=== PATIENT | male | born 1945 | race Caucasian/White ===

== ENCOUNTER 2016-11-19 15:41 | Inpatient (IN) | payer MEDICARE ==
[~2016-11-19] VITALS: Ht 185.4 cm; Wt 112.9 kg
[2016-11-19] MEDS ORDERED: DUONEB INH ONE ×2 (17:31)
[2016-11-19] MEDS ORDERED: NEB-ALBUTEROL 2.5 MG/3 ML INH ONE (17:31)
[2016-11-19] MEDS ORDERED: Furosemide 40 MG/4 ML VIAL ONE (19:47)
[2016-11-19] MEDS ORDERED: SALINE FLUSH 10 ML FLUSH PRN (20:30)
[2016-11-19] MEDS ORDERED: ONDANSETRON 4 MG VIAL IV PRN (20:30)
[2016-11-19] MEDS ORDERED: PROMETHAZINE 25 MG TAB PO PRN (21:05)
[2016-11-19] MEDS ORDERED: ALU/MAG/SIM 30 ML UDC PO PRN (21:05)
[2016-11-19] MEDS ORDERED: PROMETHAZINE 25 MG SUPP RECTAL PRN (21:05)
[2016-11-19 22:15] VITALS: BP_SYST 138; RESP 20; TEMP 98.2; Ht 185.4 cm; Wt 112.9 kg
[2016-11-20] VITALS (15 sets, daily range): BP systolic 102–146; RESP 18–22; TEMP 97.3–98.9
[2016-11-20] MEDS: DIGOXIN 0.125 MG TAB PO SCH ×2 (00:27→12:26)
[2016-11-20] MEDS: DILTIAZEM CD 120 MG CAP PO SCH ×2 (00:27→12:25)
[2016-11-20] MEDS: CARVEDILOL 25 MG TAB PO SCH ×3 (00:28→20:30)
[2016-11-20] MEDS: PRAVASTATIN 40 MG TAB PO SCH ×2 (00:28→20:30)
[2016-11-20] MEDS: APIXABAN 5 MG TAB PO SCH ×3 (00:29→20:30)
[2016-11-20] MEDS: METHYLPRED SOD SUCC 40 MG VIAL IV SCH ×2 (00:29→08:19)
[2016-11-20] MEDS: DUONEB INH SCH ×5 (00:30→23:51)
[2016-11-20] MEDS: ZOLPIDEM 5 MG TAB PO PRN ×2 (02:35→22:38)
[2016-11-20] MEDS: SODIUM CHLORIDE 0.9% FLUSH BAG 500 ML IV SCH (06:09)
[2016-11-20] MEDS: NEB-BROVANA 15 MCG/2 ML INH SCH ×2 (07:19→17:33)
[2016-11-20] MEDS: SALINE FLUSH 10 ML FLUSH SCH ×2 (08:19→20:30)
[2016-11-20] MEDS: NICOTINE 21 MG/24 HR TRANSDERM SCH (08:20)
[2016-11-20] MEDS: CEFTRIAXONE 1 GM in SODIUM CHLORIDE 0.9% 50 ML IV SCH (08:20)
[2016-11-20] MEDS: LISINOPRIL 20 MG TAB PO SCH (08:20)
[2016-11-20] MEDS: Furosemide 20 MG TAB PO SCH (08:21)
[2016-11-20] MEDS: MULTIVITS/MINERALS (THERAGRAN M) TAB PO SCH (08:21)
[2016-11-20] MEDS: FOLIC ACID 1 MG TAB PO SCH (08:21)
[2016-11-20] MEDS: THIAMINE 100 MG TAB PO SCH (08:21)
[2016-11-20] MEDS ORDERED: ENOXAPARIN 40 MG/0.4 ML SYR SUBQ SCH (09:00)
[2016-11-20] MEDS ORDERED: MAGNEVIST 20ML IV ONE (09:39)
[2016-11-20] MEDS: NEB-BUDESONIDE 0.5 MG INH SCH ×2 (11:35→17:34)
[2016-11-20] MEDS ORDERED: AZITHROMYCIN 250 MG TAB PO ONE (11:35)
[2016-11-20] MEDS: LORAZEPAM 0.5 MG TAB PO PRN ×2 (14:01→19:24)
[2016-11-20] MEDS ORDERED: MISSING DOSE XX ONE (19:35)
[2016-11-21] VITALS (8 sets, daily range): BP systolic 108–149; RESP 17–20; TEMP 97.3–98.7
[2016-11-21] MEDS: SODIUM CHLORIDE 0.9% FLUSH BAG 500 ML IV SCH (06:20)
[2016-11-21] MEDS: NEB-BUDESONIDE 0.5 MG INH SCH ×2 (07:39→20:24)
[2016-11-21] MEDS: DUONEB INH SCH ×4 (07:39→23:51)
[2016-11-21] MEDS: NEB-BROVANA 15 MCG/2 ML INH SCH ×2 (07:39→20:25)
[2016-11-21] MEDS ORDERED: MISSING DOSE XX ONE ×2 (08:00→11:50)
[2016-11-21] MEDS: SALINE FLUSH 10 ML FLUSH SCH ×2 (08:25→20:33)
[2016-11-21] MEDS: NICOTINE 21 MG/24 HR TRANSDERM SCH (08:25)
[2016-11-21] MEDS: CEFTRIAXONE 1 GM in SODIUM CHLORIDE 0.9% 50 ML IV SCH (08:25)
[2016-11-21] MEDS: LISINOPRIL 20 MG TAB PO SCH (08:26)
[2016-11-21] MEDS: Furosemide 20 MG TAB PO SCH (08:26)
[2016-11-21] MEDS: FOLIC ACID 1 MG TAB PO SCH (08:26)
[2016-11-21] MEDS: MULTIVITS/MINERALS (THERAGRAN M) TAB PO SCH (08:26)
[2016-11-21] MEDS: AZITHROMYCIN 250 MG TAB PO SCH (08:26)
[2016-11-21] MEDS: THIAMINE 100 MG TAB PO SCH (08:26)
[2016-11-21] MEDS: PREDNISONE 20 MG TAB PO SCH (08:26)
[2016-11-21] MEDS: KCL CR 10 MEQ TAB PO SCH (08:26)
[2016-11-21] MEDS: LORAZEPAM 0.5 MG TAB PO PRN ×2 (08:26→15:26)
[2016-11-21] MEDS: APIXABAN 5 MG TAB PO SCH ×2 (08:27→20:33)
[2016-11-21] MEDS: CARVEDILOL 25 MG TAB PO SCH (08:27)
[2016-11-21] MEDS: DIGOXIN 0.125 MG TAB PO SCH (12:08)
[2016-11-21] MEDS: DILTIAZEM CD 120 MG CAP PO SCH (12:08)
[2016-11-21] MEDS ORDERED: LORAZEPAM 0.5 MG TAB PO PRN (12:15)
[2016-11-21] MEDS: BUSPIRONE HCL 15 MG TAB PO SCH ×2 (12:59→20:33)
[2016-11-21] MEDS: PAROXETINE HCL 20 MG TAB PO SCH (12:59)
[2016-11-21] MEDS: NEB-NACL 3% 4 ML NEBU INH SCH ×3 (15:58→23:51)
[2016-11-21] MEDS: PRAVASTATIN 40 MG TAB PO SCH (20:33)
[2016-11-21] MEDS: ZOLPIDEM 5 MG TAB PO PRN (20:38)
[2016-11-22 03:46] VITALS: BP_SYST 136; TEMP 98.3
[2016-11-22] MEDS: SODIUM CHLORIDE 0.9% FLUSH BAG 500 ML IV SCH (06:00)
[2016-11-22 07:14] VITALS: BP_SYST 134; RESP 18; TEMP 97.3
[2016-11-22] MEDS: DUONEB INH SCH ×4 (07:14→22:31)
[2016-11-22] MEDS: NEB-BROVANA 15 MCG/2 ML INH SCH ×2 (07:14→18:31)
[2016-11-22] MEDS: NEB-NACL 3% 4 ML NEBU INH SCH ×4 (07:15→22:31)
[2016-11-22] MEDS: NEB-BUDESONIDE 0.5 MG INH SCH ×2 (07:15→18:31)
[2016-11-22] MEDS: CEFTRIAXONE 1 GM in SODIUM CHLORIDE 0.9% 50 ML IV SCH (08:33)
[2016-11-22] MEDS: SALINE FLUSH 10 ML FLUSH SCH ×2 (08:33→20:34)
[2016-11-22] MEDS: Furosemide 20 MG TAB PO SCH (08:34)
[2016-11-22] MEDS: BUSPIRONE HCL 15 MG TAB PO SCH ×2 (08:34→20:34)
[2016-11-22] MEDS: MULTIVITS/MINERALS (THERAGRAN M) TAB PO SCH (08:34)
[2016-11-22] MEDS: THIAMINE 100 MG TAB PO SCH (08:34)
[2016-11-22] MEDS: AZITHROMYCIN 250 MG TAB PO SCH (08:34)
[2016-11-22] MEDS: LISINOPRIL 20 MG TAB PO SCH ×2 (08:34→12:49)
[2016-11-22] MEDS: APIXABAN 5 MG TAB PO SCH ×2 (08:34→20:34)
[2016-11-22] MEDS: PAROXETINE HCL 20 MG TAB PO SCH (08:34)
[2016-11-22] MEDS: PREDNISONE 20 MG TAB PO SCH (08:34)
[2016-11-22] MEDS: NICOTINE 21 MG/24 HR TRANSDERM SCH (08:35)
[2016-11-22] MEDS ORDERED: CARVEDILOL 25 MG TAB PO SCH (09:00)
[2016-11-22 11:09] VITALS: BP_SYST 101; RESP 20; TEMP 97.4
[2016-11-22] MEDS: LORAZEPAM 0.5 MG TAB PO PRN ×2 (11:27→20:35)
[2016-11-22] MEDS: DILTIAZEM CD 120 MG CAP PO SCH (11:27)
[2016-11-22] MEDS: DIGOXIN 0.125 MG TAB PO SCH (11:27)
[2016-11-22] MEDS: PIPERACIL/TAZO 3.375GM/50ML 50 ML IV SCH ×2 (12:08→15:47)
[2016-11-22] MEDS ORDERED: METOLAZONE 2.5 MG TAB PO ONE (12:45)
[2016-11-22] MEDS: CARVEDILOL 25 MG TAB PO SCH ×2 (12:49→20:34)
[2016-11-22 14:52] VITALS: BP_SYST 150; RESP 20; TEMP 98.6
[2016-11-22 19:50] VITALS: BP_SYST 136; RESP 20; TEMP 97.6
[2016-11-22] MEDS: PRAVASTATIN 40 MG TAB PO SCH (20:34)
[2016-11-22] MEDS: ZOLPIDEM 5 MG TAB PO PRN (20:34)
[2016-11-22] MEDS: AMOXICILLIN/CLAV 875 MG TAB PO SCH (20:34)
[2016-11-22 23:13] VITALS: BP_SYST 120; RESP 20; TEMP 98.7
[2016-11-23] VITALS (8 sets, daily range): BP systolic 116–144; RESP 16–24; TEMP 97.6–98.7
[2016-11-23] MEDS: SODIUM CHLORIDE 0.9% FLUSH BAG 500 ML IV SCH (05:37)
[2016-11-23] MEDS: DUONEB INH SCH ×4 (06:08→22:50)
[2016-11-23] MEDS: NEB-BROVANA 15 MCG/2 ML INH SCH ×2 (06:08→19:10)
[2016-11-23] MEDS: NEB-BUDESONIDE 0.5 MG INH SCH ×2 (06:08→19:10)
[2016-11-23] MEDS: NEB-NACL 3% 4 ML NEBU INH SCH ×4 (06:08→22:50)
[2016-11-23] MEDS: AMOXICILLIN/CLAV 875 MG TAB PO SCH ×2 (08:15→20:47)
[2016-11-23] MEDS: SALINE FLUSH 10 ML FLUSH SCH ×2 (08:15→20:48)
[2016-11-23] MEDS: NICOTINE 21 MG/24 HR TRANSDERM SCH (08:16)
[2016-11-23] MEDS: LISINOPRIL 20 MG TAB PO SCH (08:16)
[2016-11-23] MEDS: AZITHROMYCIN 250 MG TAB PO SCH (08:16)
[2016-11-23] MEDS: THIAMINE 100 MG TAB PO SCH (08:17)
[2016-11-23] MEDS: APIXABAN 5 MG TAB PO SCH ×2 (08:17→20:47)
[2016-11-23] MEDS: MULTIVITS/MINERALS (THERAGRAN M) TAB PO SCH (08:17)
[2016-11-23] MEDS: PREDNISONE 20 MG TAB PO SCH (08:17)
[2016-11-23] MEDS: KCL CR 10 MEQ TAB PO SCH (08:17)
[2016-11-23] MEDS: PAROXETINE HCL 20 MG TAB PO SCH (08:17)
[2016-11-23] MEDS: Furosemide 20 MG TAB PO SCH (08:18)
[2016-11-23] MEDS: CARVEDILOL 25 MG TAB PO SCH ×2 (08:18→20:57)
[2016-11-23] MEDS: BUSPIRONE HCL 15 MG TAB PO SCH ×2 (08:18→20:47)
[2016-11-23] MEDS ORDERED: METOLAZONE 2.5 MG TAB PO ONE (08:35)
[2016-11-23] MEDS: DIGOXIN 0.125 MG TAB PO SCH (11:31)
[2016-11-23] MEDS: DILTIAZEM CD 120 MG CAP PO SCH (11:31)
[2016-11-23] MEDS: METOLAZONE 2.5 MG TAB PO SCH (12:50)
[2016-11-23] MEDS: PRAVASTATIN 40 MG TAB PO SCH (20:47)
[2016-11-23] MEDS: ZOLPIDEM 5 MG TAB PO PRN (20:57)
[2016-11-24] VITALS (7 sets, daily range): BP systolic 110–170; RESP 16–20; TEMP 98–98.5
[2016-11-24] MEDS: LORAZEPAM 0.5 MG TAB PO PRN ×2 (04:05→13:17)
[2016-11-24] MEDS: SODIUM CHLORIDE 0.9% FLUSH BAG 500 ML IV SCH (05:31)
[2016-11-24] MEDS: DUONEB INH SCH ×4 (07:49→22:14)
[2016-11-24] MEDS: NEB-BROVANA 15 MCG/2 ML INH SCH ×2 (07:49→20:07)
[2016-11-24] MEDS: NEB-NACL 3% 4 ML NEBU INH SCH ×3 (07:49→20:07)
[2016-11-24] MEDS: NEB-BUDESONIDE 0.5 MG INH SCH ×2 (07:49→20:07)
[2016-11-24] MEDS: SALINE FLUSH 10 ML FLUSH SCH ×2 (08:37→21:15)
[2016-11-24] MEDS: Furosemide 20 MG TAB PO SCH (08:38)
[2016-11-24] MEDS: NICOTINE 21 MG/24 HR TRANSDERM SCH (08:38)
[2016-11-24] MEDS: AZITHROMYCIN 250 MG TAB PO SCH (08:38)
[2016-11-24] MEDS: METOLAZONE 2.5 MG TAB PO SCH (08:39)
[2016-11-24] MEDS: PREDNISONE 20 MG TAB PO SCH (08:39)
[2016-11-24] MEDS: PAROXETINE HCL 20 MG TAB PO SCH (08:40)
[2016-11-24] MEDS: LISINOPRIL 20 MG TAB PO SCH (08:40)
[2016-11-24] MEDS: AMOXICILLIN/CLAV 875 MG TAB PO SCH ×2 (08:40→21:13)
[2016-11-24] MEDS: CARVEDILOL 25 MG TAB PO SCH ×2 (08:40→21:13)
[2016-11-24] MEDS: APIXABAN 5 MG TAB PO SCH ×2 (08:40→21:13)
[2016-11-24] MEDS: BUSPIRONE HCL 15 MG TAB PO SCH ×2 (08:40→21:13)
[2016-11-24] MEDS: DILTIAZEM CD 120 MG CAP PO SCH (11:57)
[2016-11-24] MEDS: DIGOXIN 0.125 MG TAB PO SCH (11:57)
[2016-11-24] MEDS: PRAVASTATIN 40 MG TAB PO SCH (21:13)
[2016-11-24] MEDS: ZOLPIDEM 5 MG TAB PO PRN (21:13)
[2016-11-25] VITALS (7 sets, daily range): BP systolic 119–170; RESP 18; TEMP 98–98.6
[2016-11-25] MEDS: NEB-NACL 3% 4 ML NEBU INH SCH ×5 (00:30→22:19)
[2016-11-25] MEDS: SODIUM CHLORIDE 0.9% FLUSH BAG 500 ML IV SCH (06:00)
[2016-11-25] MEDS: NEB-BROVANA 15 MCG/2 ML INH SCH ×2 (07:41→20:14)
[2016-11-25] MEDS: DUONEB INH SCH ×4 (07:41→22:19)
[2016-11-25] MEDS: NEB-BUDESONIDE 0.5 MG INH SCH ×2 (07:41→20:14)
[2016-11-25] MEDS: AMOXICILLIN/CLAV 875 MG TAB PO SCH ×2 (08:01→20:05)
[2016-11-25] MEDS: AZITHROMYCIN 250 MG TAB PO SCH (08:01)
[2016-11-25] MEDS: BUSPIRONE HCL 15 MG TAB PO SCH ×2 (08:01→20:05)
[2016-11-25] MEDS: PREDNISONE 20 MG TAB PO SCH (08:01)
[2016-11-25] MEDS: CARVEDILOL 25 MG TAB PO SCH ×2 (08:01→20:05)
[2016-11-25] MEDS: KCL CR 10 MEQ TAB PO SCH (08:01)
[2016-11-25] MEDS: PAROXETINE HCL 20 MG TAB PO SCH (08:01)
[2016-11-25] MEDS: LISINOPRIL 20 MG TAB PO SCH (08:02)
[2016-11-25] MEDS: APIXABAN 5 MG TAB PO SCH ×2 (08:02→20:05)
[2016-11-25] MEDS: METOLAZONE 2.5 MG TAB PO SCH (08:02)
[2016-11-25] MEDS: Furosemide 20 MG TAB PO SCH (08:02)
[2016-11-25] MEDS: NICOTINE 21 MG/24 HR TRANSDERM SCH (08:03)
[2016-11-25] MEDS: SALINE FLUSH 10 ML FLUSH SCH ×2 (08:08→20:05)
[2016-11-25] MEDS: DILTIAZEM CD 120 MG CAP PO SCH (11:34)
[2016-11-25] MEDS: DIGOXIN 0.125 MG TAB PO SCH (11:35)
[2016-11-25] MEDS ORDERED: LISINOPRIL 20 MG TAB PO ONE (12:45)
[2016-11-25] MEDS: LORAZEPAM 0.5 MG TAB PO PRN (13:13)
[2016-11-25] MEDS ORDERED: MISSING DOSE XX ONE (13:30)
[2016-11-25] MEDS: PRAVASTATIN 40 MG TAB PO SCH (20:05)
[2016-11-25] MEDS: ZOLPIDEM 5 MG TAB PO PRN (20:05)
[2016-11-26 04:24] VITALS: BP_SYST 141; RESP 18; TEMP 97.9
[2016-11-26] MEDS: SODIUM CHLORIDE 0.9% FLUSH BAG 500 ML IV SCH (06:00)
[2016-11-26 07:28] VITALS: BP_SYST 148; RESP 18; TEMP 97.9
[2016-11-26] MEDS: NEB-NACL 3% 4 ML NEBU INH SCH ×4 (07:31→22:48)
[2016-11-26] MEDS: DUONEB INH SCH ×4 (07:31→22:48)
[2016-11-26] MEDS: NEB-BROVANA 15 MCG/2 ML INH SCH ×2 (07:31→19:13)
[2016-11-26] MEDS: NEB-BUDESONIDE 0.5 MG INH SCH ×2 (07:31→19:13)
[2016-11-26] MEDS ORDERED: KCL CR 20 MEQ TAB PO ONE (07:45)
[2016-11-26] MEDS: Furosemide 20 MG TAB PO SCH (08:20)
[2016-11-26] MEDS: APIXABAN 5 MG TAB PO SCH ×2 (08:20→20:51)
[2016-11-26] MEDS: AMOXICILLIN/CLAV 875 MG TAB PO SCH ×2 (08:21→20:50)
[2016-11-26] MEDS: METOLAZONE 2.5 MG TAB PO SCH (08:21)
[2016-11-26] MEDS: PAROXETINE HCL 20 MG TAB PO SCH (08:21)
[2016-11-26] MEDS: BUSPIRONE HCL 15 MG TAB PO SCH ×2 (08:21→20:50)
[2016-11-26] MEDS: MAG OXIDE 400 MG TAB PO SCH (08:22)
[2016-11-26] MEDS: SALINE FLUSH 10 ML FLUSH SCH ×2 (08:22→20:51)
[2016-11-26] MEDS: LISINOPRIL 20 MG TAB PO SCH (08:22)
[2016-11-26] MEDS: NICOTINE 21 MG/24 HR TRANSDERM SCH (08:22)
[2016-11-26] MEDS: CARVEDILOL 25 MG TAB PO SCH ×2 (08:32→20:51)
[2016-11-26 11:03] VITALS: BP_SYST 105; RESP 20; TEMP 97.6
[2016-11-26] MEDS: DIGOXIN 0.125 MG TAB PO SCH (11:33)
[2016-11-26] MEDS: DILTIAZEM CD 120 MG CAP PO SCH (11:33)
[2016-11-26] MEDS: LORAZEPAM 0.5 MG TAB PO PRN (12:38)
[2016-11-26 14:51] VITALS: BP_SYST 106; RESP 16; TEMP 98.8
[2016-11-26 20:03] VITALS: BP_SYST 124; RESP 16; TEMP 98.5
[2016-11-26] MEDS: ZOLPIDEM 5 MG TAB PO PRN (20:50)
[2016-11-26] MEDS: PRAVASTATIN 40 MG TAB PO SCH (20:51)
[2016-11-26 23:21] VITALS: BP_SYST 125; RESP 16; TEMP 98.4
[2016-11-27] VITALS (7 sets, daily range): BP systolic 91–143; RESP 16–24; TEMP 97.3–98.5
[2016-11-27] MEDS: SODIUM CHLORIDE 0.9% FLUSH BAG 500 ML IV SCH (06:00)
[2016-11-27] MEDS: DUONEB INH SCH ×4 (07:44→22:32)
[2016-11-27] MEDS: NEB-BROVANA 15 MCG/2 ML INH SCH ×2 (07:44→19:46)
[2016-11-27] MEDS: NEB-BUDESONIDE 0.5 MG INH SCH ×2 (07:44→19:46)
[2016-11-27] MEDS: NEB-NACL 3% 4 ML NEBU INH SCH ×4 (07:45→22:32)
[2016-11-27] MEDS: SALINE FLUSH 10 ML FLUSH SCH ×2 (08:22→20:59)
[2016-11-27] MEDS: KCL CR 10 MEQ TAB PO SCH (08:23)
[2016-11-27] MEDS: NICOTINE 21 MG/24 HR TRANSDERM SCH (08:23)
[2016-11-27] MEDS: CARVEDILOL 25 MG TAB PO SCH ×2 (08:24→20:58)
[2016-11-27] MEDS: APIXABAN 5 MG TAB PO SCH ×2 (08:25→20:58)
[2016-11-27] MEDS: AMOXICILLIN/CLAV 875 MG TAB PO SCH ×2 (08:25→20:58)
[2016-11-27] MEDS: BUSPIRONE HCL 15 MG TAB PO SCH ×2 (08:25→20:58)
[2016-11-27] MEDS: Furosemide 20 MG TAB PO SCH (08:26)
[2016-11-27] MEDS: MAG OXIDE 400 MG TAB PO SCH (08:26)
[2016-11-27] MEDS: LISINOPRIL 20 MG TAB PO SCH (08:26)
[2016-11-27] MEDS: METOLAZONE 2.5 MG TAB PO SCH (08:27)
[2016-11-27] MEDS: PAROXETINE HCL 20 MG TAB PO SCH (08:27)
[2016-11-27] MEDS: LORAZEPAM 0.5 MG TAB PO PRN ×2 (08:35→16:52)
[2016-11-27] MEDS ORDERED: SODIUM CHLORIDE 0.9% 500 ML IV ONE (09:25)
[2016-11-27] MEDS ORDERED: DIGOXIN 0.125 MG TAB PO ONE (10:00)
[2016-11-27] MEDS: DIGOXIN 0.125 MG TAB PO SCH (10:06)
[2016-11-27] MEDS ORDERED: SODIUM CHLORIDE 0.9% 1,000 ML IV ONE (11:55)
[2016-11-27] MEDS ORDERED: OPTIRAY 350 100 ML VIAL HMH IV ONE (13:19)
[2016-11-27] MEDS: DILTIAZEM CD 120 MG CAP PO SCH (13:32)
[2016-11-27] MEDS: PRAVASTATIN 40 MG TAB PO SCH (20:58)
[2016-11-27] MEDS: ZOLPIDEM 5 MG TAB PO PRN (21:02)
[2016-11-28] VITALS (7 sets, daily range): BP systolic 99–151; RESP 16–22; TEMP 97.6–98.8
[2016-11-28] MEDS: DUONEB INH SCH ×4 (07:26→23:00)
[2016-11-28] MEDS: NEB-NACL 3% 4 ML NEBU INH SCH ×4 (07:26→23:35)
[2016-11-28] MEDS: NEB-BROVANA 15 MCG/2 ML INH SCH ×2 (07:26→18:50)
[2016-11-28] MEDS: NEB-BUDESONIDE 0.5 MG INH SCH ×2 (07:26→18:50)
[2016-11-28] MEDS ORDERED: MISSING DOSE XX ONE (10:00)
[2016-11-28] MEDS: AMOXICILLIN/CLAV 875 MG TAB PO SCH ×2 (10:03→21:28)
[2016-11-28] MEDS: APIXABAN 5 MG TAB PO SCH ×2 (10:04→21:26)
[2016-11-28] MEDS: CARVEDILOL 25 MG TAB PO SCH ×2 (10:04→21:29)
[2016-11-28] MEDS: BUSPIRONE HCL 15 MG TAB PO SCH ×2 (10:04→21:28)
[2016-11-28] MEDS: PAROXETINE HCL 20 MG TAB PO SCH (10:04)
[2016-11-28] MEDS: NICOTINE 21 MG/24 HR TRANSDERM SCH (10:05)
[2016-11-28] MEDS: SODIUM CHLORIDE 0.9% FLUSH BAG 500 ML IV SCH (10:05)
[2016-11-28] MEDS: SALINE FLUSH 10 ML FLUSH SCH ×2 (10:06→21:29)
[2016-11-28] MEDS: DIGOXIN 0.125 MG TAB PO SCH (11:05)
[2016-11-28] MEDS: KCL CR 10 MEQ TAB PO SCH (11:06)
[2016-11-28] MEDS ORDERED: DILTIAZEM CD 180 MG CAP PO SCH (12:00)
[2016-11-28] MEDS: LISINOPRIL 20 MG TAB PO SCH (12:22)
[2016-11-28] MEDS: LORAZEPAM 0.5 MG TAB PO PRN (13:27)
[2016-11-28] MEDS: ZOLPIDEM 5 MG TAB PO PRN (21:26)
[2016-11-28] MEDS: clonazePAM 0.5 MG TAB PO SCH (21:28)
[2016-11-28] MEDS: PRAVASTATIN 40 MG TAB PO SCH (21:28)
[2016-11-29 03:25] VITALS: BP_SYST 112; RESP 20; TEMP 98.2
[2016-11-29] MEDS: SODIUM CHLORIDE 0.9% FLUSH BAG 500 ML IV SCH (05:37)
[2016-11-29] MEDS: NEB-NACL 3% 4 ML NEBU INH SCH (06:30)
[2016-11-29] MEDS: DUONEB INH SCH (07:00)
[2016-11-29] MEDS: NEB-BROVANA 15 MCG/2 ML INH SCH (07:00)
[2016-11-29] MEDS: NEB-BUDESONIDE 0.5 MG INH SCH (07:00)
[2016-11-29 07:22] VITALS: BP_SYST 114; RESP 18; TEMP 98.8
[2016-11-29] MEDS ORDERED: KCL CR 20 MEQ TAB PO ONE ×2 (07:45→07:55)
[2016-11-29] MEDS: SALINE FLUSH 10 ML FLUSH SCH (08:00)
[2016-11-29] MEDS ORDERED: MISSING DOSE XX ONE (08:00)
[2016-11-29] MEDS: AMOXICILLIN/CLAV 875 MG TAB PO SCH (08:22)
[2016-11-29] MEDS: BUSPIRONE HCL 15 MG TAB PO SCH (08:22)
[2016-11-29] MEDS: CARVEDILOL 25 MG TAB PO SCH (08:22)
[2016-11-29] MEDS: APIXABAN 5 MG TAB PO SCH (08:22)
[2016-11-29] MEDS: PAROXETINE HCL 20 MG TAB PO SCH (08:23)
[2016-11-29] MEDS: clonazePAM 0.5 MG TAB PO SCH (08:23)
[2016-11-29] MEDS: KCL CR 10 MEQ TAB PO SCH (08:24)
[2016-11-29] MEDS: NICOTINE 21 MG/24 HR TRANSDERM SCH (08:24)
[2016-11-29] MEDS: LISINOPRIL 20 MG TAB PO SCH (08:25)
== END 2016-11-29 09:15 | disposition home or self-care (01) | DRG 190 ==
LOC: ENRESERVTM → ENRESERV → ENRESERVDT → ER 15:41 → EMR 20:30 → 3NT 22:05
PROVIDERS: ADMIT Family Medicine; ATTEND Family Medicine
DX: J44.1 Chronic obstructive pulmonary disease with (acute) exacerbation (principal); J15.8 Pneumonia due to other specified bacteria; I50.33 Acute on chronic diastolic (congestive) heart failure; I48.2 Chronic atrial fibrillation; I50.32 Chronic diastolic (congestive) heart failure; E87.1 Hypo-osmolality and hyponatremia; L03.115 Cellulitis of right lower limb; I13.0 Hypertensive heart and chronic kidney disease with heart failure and stage 1 through stage 4 chronic kidney disease, or unspecified chronic kidney disease; R09.02 Hypoxemia; F17.210 Nicotine dependence, cigarettes, uncomplicated; Z79.01 Long term (current) use of anticoagulants; F10.10 Alcohol abuse, uncomplicated; R29.6 Repeated falls; D32.0 Benign neoplasm of cerebral meninges; J44.0 Chronic obstructive pulmonary disease with (acute) lower respiratory infection; N18.9 Chronic kidney disease, unspecified; I73.9 Peripheral vascular disease, unspecified
CPT/HCPCS: 36415; 36600; 70553; 71010; 71260; 80048; 80053; 80162; 82553; 82803; 83605; 83735; 83880; 84484; 85025; 85610; 85730; 86738; 87040; 87071; 87077; 87278; 87299; 93005; 93923; 93970; 94640; 94799; 96374; 99223; 99231; 99232; 99233; 99238